=== PATIENT | male | born 1980 | race Caucasian/White ===

== ENCOUNTER → 2019-03-01 | Outpatient (CLI) | payer MEDICARE ==
[~2019-03-01] MED LIST: AMPDEX10CR PO; ARIP10 PO; CEPH500 PO; Cleocin HCl300 MG PO; DICL250 PO; FLUO10; HYDACE10B PO; IBUP800 PO; INVEGA SUS156 MG/1 M IM; LAMO25 PO; LORA2 PO; NAPR500 PO; OMEP40CA12 PO; OXCA300; RANI150; SULTRIDS PO; TESTOSTERONE; TESTOSTERONE IM; Ultram50 MG PO; ZIPR80 PO; Zofran Odt4 MG SL; [UNRECOGNIZED DRUG - REMARK]
== END | disposition home or self-care (01) ==
LOC: LAB 15:48 → LAB SHORT 15:48
DX: L02.211 Cutaneous abscess of abdominal wall (principal)
CPT/HCPCS: 87070; 87075; 87077; 87186; 87205

== ENCOUNTER → 2019-04-11 | Outpatient (CLI) | payer MEDICARE | END | disposition home or self-care (01) | LOC: LAB 19:54 → LAB SHORT 19:54 | DX: L02.211 Cutaneous abscess of abdominal wall (principal) | CPT/HCPCS: 87070; 87075; 87077; 87186; 87205 ==

== ENCOUNTER → 2020-05-31 | Outpatient (CLI) | payer OTHER | END | disposition home or self-care (01) | LOC: LAB SHORT 11:20 → LAB 11:20 | DX: L03.116 Cellulitis of left lower limb (principal) | CPT/HCPCS: 87070; 87075; 87077; 87147; 87186; 87205 ==

== ENCOUNTER → 2020-07-06 | Outpatient (CLI) | payer OTHER | END | disposition home or self-care (01) | LOC: LAB SHORT 10:55 → LAB SRC 10:55 | DX: L02.213 Cutaneous abscess of chest wall (principal) | CPT/HCPCS: 87070; 87075; 87077; 87147; 87186; 87205 ==

== ENCOUNTER 2020-12-05 02:14 | Emergency (ER) | payer OTHER | END 2020-12-05 03:05 | disposition left against medical advice (07) | LOC: ER 02:14 | DX: Z53.21 Procedure and treatment not carried out due to patient leaving prior to being seen by health care provider (principal) ==

== ENCOUNTER 2023-02-11 21:36 | Emergency (ER) | payer OTHER ==
[~2023-02-11] VITALS: Ht 185.4 cm; Wt 141.1 kg
[2023-02-11 21:48] VITALS: BP 133/90
== END 2023-02-12 01:27 | disposition home or self-care (01) ==
LOC: ER 21:36
DX: S61.210A Laceration without foreign body of right index finger without damage to nail, initial encounter (principal); Z23 Encounter for immunization; W25.XXXA Contact with sharp glass, initial encounter; Z88.5 Allergy status to narcotic agent; Z88.0 Allergy status to penicillin; Z91.013 Allergy to seafood; Z79.899 Other long term (current) drug therapy; F17.210 Nicotine dependence, cigarettes, uncomplicated
CPT/HCPCS: 12001; 90471; 90715; 99283-25

== ENCOUNTER 2024-07-02 07:40 | Day surgery (SDC) | payer OTHER ==
[~2024-07-02] VITALS: Ht 181 cm; Wt 134.5 kg
[~2024-07-02 07:40] MED LIST changes: +FARXIGA10 MG PO; +FLUV50 PO; +Lactated Ringer's 1,000 ML IV SCH; +MYRBETRIQ50 MG PO; +OLAN10 PO; +OMEP20ER PO; -OMEP40CA12 PO
[2024-07-02] MEDS ORDERED: propofoL 40 ML IV ONE (08:06)
[2024-07-02 08:29] VITALS: BP 145/76
--- NOTE | 2024-07-02 08:36 | NUR ---
07/02/24 0836 Thang Avina History, Chart, Medications and Allergies reviewed before start of procedure.MONITOR INTACT WITH CONTINUOUS PULSE OXIMETRY, CONTINUOUS END TITAL CO2, 3-LEAD EKG AND INTERMITTENT BLOOD PRESSURE.3-LEAD EKG REVIEWED WITH PHYSICIAN PRIOR TO START OF PROCEDURE.O2 VIA POM INTACT THROUGHOUT SEDATION/PROCEDURE.See Anesthesia record.
--- NOTE | 2024-07-02 08:39 | NUR ---
History, Chart, Medications and Allergies reviewed before start of procedure. Patient up to Ambulate independently. Gait steady. Pre-Op teaching done. Pt verbalizes understanding. Patient confirms NPO status and agrees with scheduled surgery. Patient states colon prep results clear. Patient States Post-Procedure ride home has been arranged.
[2024-07-02 09:15] VITALS: BP 135/87
[2024-07-02 09:28] VITALS: BP 142/95
--- NOTE | 2024-07-02 09:41 | NUR ---
DISCHARGE NOTE Patient up to Ambulate independently. Gait steady. Lungs clear T/O to Auscultation. Discharge instructions reviewed with patient. Patient verbalizes understanding. Copy given to patient to take home. Discharged via wheelchair to private car for ride home.
== END 2024-07-02 23:00 | disposition home or self-care (01) ==
LOC: ORSCMMR 07:40 → ORD 09:30 → ORSCMMR 23:00
PROVIDERS: Internal Medicine Gastroenterology
PROC: 0DBM8ZX Excision of Descending Colon, Via Natural or Artificial Opening Endoscopic, Diagnostic (ICD-10-PCS; principal; 2024-07-02 09:30)
DX: K62.5 Hemorrhage of anus and rectum (principal); D12.4 Benign neoplasm of descending colon; F25.0 Schizoaffective disorder, bipolar type; E11.9 Type 2 diabetes mellitus without complications; Z87.891 Personal history of nicotine dependence; E66.01 Morbid (severe) obesity due to excess calories; Z68.41 Body mass index [BMI] 40.0-44.9, adult; Z79.899 Other long term (current) drug therapy; Z80.0 Family history of malignant neoplasm of digestive organs; R11.2 Nausea with vomiting, unspecified
CPT/HCPCS: 82947; 88305; J2704; J7120